=== PATIENT | male | born 1945 | race Caucasian/White ===

== ENCOUNTER 2019-08-13 12:11 | Inpatient (IN) | payer MEDICARE, OTHER, SELFPAY ==
[2019-08-13 12:59] VITALS: BP 133/96; PULSE 98; RESP 17; TEMP 36.8; O2SAT 93
--- NOTE | 2019-08-13 13:02 | PC.NURSE ---
Addendum entered by Anmol Bell R.N. 08/13/19 15:58: 1400 Photograph taken for assessment on wound camera. Left leg wound cleansed with normal saline, patted dry and non adherent telfa dressing applied, wrapped in kerlex gauze and secured with paper tape. Patient denies pain. Denies fever, chills, n/v, numbness or tingling. Denies calf pain or tenderness. Patient instructed to call for assistance to get up, and patient agrees not to get up alone. Original Note: Patient arrived from MD's office, sitting upright in bed, talkative, pleasant and in no acute distress. Left leg wound is AUTOMOTIVE UPHOLSTERER, sutures noted, see further wound assessment documentation. at bedside. Oriented to room and call light. Will continue to monitor and review orders. Plan for IV placement with antibiotics as ordered, NPO after midnight with anticipated procedure tomorrow.
[2019-08-13] MEDS: CEFAZOLIN 2 GM/100 ML FROZ.PIGGY IV ×2 (14:03→21:09)
[2019-08-13 14:22] VITALS: BMI 34.4
[2019-08-13 15:24] VITALS: BP 139/85; PULSE 104; RESP 18; TEMP 36.3; O2SAT 94
[2019-08-13] MEDS: METFORMIN HCL 500 MG TABLET 1000 MG PO (17:16)
[2019-08-13] MEDS: AMITRIPTYLINE 25 MG TABLET PO (17:16)
[2019-08-13] MEDS: SIMVASTATIN 40 MG TABLET PO (18:01)
[2019-08-13] MEDS: GABAPENTIN 600 MG TABLET PO (18:01)
--- NOTE | 2019-08-13 18:05 | P.HP_ITS ---
History of Present Illness History of Present Illness Date Patient Seen: 08/13/19 Time Patient Seen: 12:00 Chief complaint: infected hematoma in leg Narrative: The patient is a gentleman about whom I was called yesterday from the PA and his family doctor's clinic. He apparently has had swelling in his left leg and they have been treating him and attempted an I and D and wanted to refer him for definitive surgical treatment. He was able to come today and we saw him. Sometime around July 27 the patient fell at home and struck his leg on his bed leg. He had fairly immediate swelling of the area and of the leg. In the subsequent time some of that swelling has gone down but the skin has turned black. He has been on Keflex for at least a week and I asked them to switch him to Septra yesterday when I talked to them. The pain has improved with time. The swelling has also improved though he has been keeping an Jesus Alberto wrap on it. He did ice it initially. He is able to walk without any more difficulty than usual. Denies any fever chills. He is a diabetic. Patient reports a pain of 2 to 3/10 at this time. Patient History Medical History A-fib (Acute) Diabetes (Acute) HTN (hypertension) (Acute) Surgical History History of ankle surgery (Acute) Hx of elbow surgery (Acute) Hx of knee surgery (Acute) Family & Social History Family History Father Hypertension Mother Hypertension Sister Cancer Social History: household members spouse Safety & Behavioral: Feels Safe in Current Yes Environment Been Physically Hurt or No Threatened By a Person Suicidal Ideation Description None Suicide Plan Description No Plan Tobacco & Substance use: Smoking Status Never smoker alcohol intake current alcohol intake frequency 0-2 drinks per day Meds Home Medications and Allergies Home Medications Medication Instructions Recorded Confirmed Type allopurinol 300 mg tablet 300 mg PO DAILY 08/13/19 08/13/19 History amitriptyline 25 mg tablet 25 mg PO DAILY 08/13/19 08/13/19 History aspirin 81 mg tablet,delayed 81 mg PO DAILY 08/13/19 08/13/19 History release cholecalciferol (vitamin D3) 1,000 1,000 unit PO DAILY 08/13/19 08/13/19 History unit capsule dabigatran etexilate 150 mg capsule 150 mg PO BID 08/13/19 08/13/19 History gabapentin [Neurontin] 1,200 mg PO ONCE HS 08/13/19 08/13/19 History loratadine 10 mg tablet 10 mg PO DAILY 08/13/19 08/13/19 History metformin 1,000 mg tablet 1,000 mg PO BID 08/13/19 08/13/19 History metoprolol tartrate 25 mg tablet 25 mg PO BID tab 08/13/19 08/13/19 History multivitamin 1 cap PO DAILY 08/13/19 08/13/19 History simvastatin 40 mg tablet 40 mg PO DAILY 08/13/19 08/13/19 History sulfamethoxazole 800 1 tab PO BID 08/13/19 08/13/19 History mg-trimethoprim 160 mg tablet vitamin B complex 1 tab PO DAILY 08/13/19 08/13/19 History vitamin E (dl, acetate) 1,000 unit 1,000 unit PO DAILY 08/13/19 08/13/19 History capsule Allergies Allergy/AdvReac Type Severity Reaction Status Date / Time No Known Drug Allergies Allergy Unverified 08/13/19 11:45 Review of Systems Review of Systems Narrative: Patient denies fever chills or night sweats. No other skin lesions that are new or itching. Denies headache, double vision, pain is eyes, earaches, sore throat. Patient denies cough, cold, asthma. No chest pain or prior heart attacks. His legs do swell as specially the traumatize left leg. He does have hypertension and is taking medication for it. He also despite having never had a heart attack has AFib. There was an attempted a cardioversion which lasted temporarily. They decided not to ablate him. He had been on warfarin for his AFib but he was switched to dabigatran and is about to be changed to Eliquis because the pharmacy is switching drugs. Unfortunately he took his blood thinner this morning. Patient denies chronic joint or muscle pain. No blood in his urine or kidney stones. No seizures or blackouts. No anxiety or depression. No problems with this thyroid that he is aware of. His diabetes is pretty well controlled. He will bruise easily. Not spontaneously bleeding. He has no problems with his breasts. No nipple discharge. Exam Vital Signs (past 8 hours): - 08/13/19 12:59 08/13/19 15:24 Temperature 98.2 F 97.3 F L Pulse Rate 98 H 104 H Respiratory Rate 17 18 Blood Pressure 133/96 H 139/85 Pulse Oximetry 93 94 Oxygen Flow Rate 0 Narrative Exam Narrative: Cooperative obese gentleman in no apparent distress. His BMI is 30 for. Vitals signs are noted. His eyes are nonicteric. Pupils equal round reactive to light. Conjunctivae are pink. No swelling of the lids. His nasal septum is midline. Ears without lesion. Lips without splits. Oral mucosa is pink moist no open lesions. Neck is supple. There are no nodes in the neck or supraclavicular areas. Trachea is midline mobile. No tenderness or masses in the thyroid. His lungs are clear to auscultation without increased expiratory phase. Heart regular rate and rhythm without murmur gallop. His lungs percuss equally bilaterally. No bruit in the neck is appreciated. His abdomen is pr otuberant soft. There are no palpable masses or hernias. Liver and spleen are not enlarged. No tenderness. No guarding. Patient is alert and oriented x3. Speech rate and content are appropriate. Affect is appropriate. I do not feel good pulses at the wrist. The patient has a bounding left popliteal pulse. There is a 1+ dorsalis pedis pulse. I do not appreciate a tibialis posterior pulse on the left. Lateral left leg patient has a rather large hematoma with an eschar over it. It is fluctuant. The skin overlying it is mildly reddened. There is no redness extending beyond at this time. There has been some darkening of the skin however at the edges. Assessment & Plan Assessment and plan (1) Diabetes type 2 with atherosclerosis of arteries of extremities: Problem details: Continue metformin. Will hold for the morning. Cover him with sliding scale insulin at that time. Current visit: Yes Status: Acute (2) Essential hypertension: Problem details: Continue meds for his hypertension. Current visit: Yes Status: Acute (3) Traumatic hematoma of left lower leg: Problem details: May be infected. Will determine that when I drainage. Because the patient took his anticoagulation it will take at least 24 hours without effect to wear down will wait until tomorrow to do this operation. In the meantime will keep his legs elevated as much as possible to get the swelling out. Since he is completely anticoagulated will not need to give Lovenox today. Current visit: Yes Status: Acute (4) Obesity (BMI 30-39.9): Problem details: Will discuss his weight and diabetes management. Current visit: Yes Status: Acute (5) Atrial fibrillation: Problem details: Will continue his beta yuli and will control his rate. Will resume his anticoagulation when appropriate. Current visit: Yes Status: Acute (6) Chronic anticoagulation: Problem details: Will stop for the operation. Resume when appropriate afterward. Current visit: Yes Status: Acute (7) Gout: Problem details: Continue his allopurinol. Current visit: Yes Status: Acute
[2019-08-13 19:23] LABS: Add Manual Diff / Slide Review NO; Basophils Absolute Auto 0 /uL (0-100); Basophils Percent Auto 0.2 % (0-2); Eosinophils Absolute Auto 300 /uL (0-450); Eosinophils Percent Auto 4.2 % (2-4); Hematocrit 38.5 % (41-53); Hemoglobin 13.1 g/dL (13.5-17.5); Lymphocytes Absolute Auto 1800 /uL (1100-4500); Mean Corpuscular HGB Conc 33.9 % (30-36); Mean Corpuscular Hemoglobin 30.7 PG (26-34); Mean Corpuscular Volume 90.5 fL (80-100); Monocytes Absolute Auto 800 /uL (0-900); Monocytes Percent Auto 10.8 % (3-14); Neutrophils Absolute Auto 4800 /uL (1500-7000); Neutrophils Percent Auto 61.8 % (50-75); Platelet Count 320 X10^3/uL (150-400); Red Blood Cell Count 4.26 X10^6/uL (4.5-5.9); Red Cell Distribution Width 13.5 % (11.6-14.8); White Blood Cell Count 7.8 X10^3/uL (4.5-11.0)
[2019-08-13 19:31] VITALS: BP 153/98; PULSE 106; RESP 18; TEMP 37.1; O2SAT 95
[2019-08-13 19:36] LABS: Alanine Aminotransferase 14 IU/L (<50); Albumin Globulin Ratio 1.5 (1.0-2.8); Alkaline Phosphatase 95 U/L (38-126); Aspartate Aminotransferase 26 IU/L (17-59); BUN Creatinine Ratio 18.3 (6-22); Bilirubin Total 0.4 mg/dL (0.2-1.3); Blood Urea Nitrogen 22 mg/dL (9-20); Calcium 8.5 mg/dL (8.4-10.2); Carbon Dioxide 30 mmol/L (22-32); Chloride 101 mmol/L (98-107); Estimated Glomerular Filt Rate 59.3 mL/min (>60); Globulin 2.7 g/dL (1.7-4.1); Glucose 127 mg/dL (80-110); HEMOLYSIS < 15 (0-50); Potassium 3.9 mmol/L (3.4-5.1); Sodium 139 mmol/L (137-145); Total Protein 6.7 g/dL (6.3-8.2)
[2019-08-13] MEDS: GABAPENTIN 600 MG TABLET 1200 MG PO (21:09)
[2019-08-13] MEDS: LACTATED RINGERS 1,000 ML 100 ML IV (21:57)
[2019-08-13 23:11] VITALS: BP 154/95; PULSE 91; RESP 16; TEMP 36.9; O2SAT 95
[2019-08-14] VITALS (13 sets, daily range): BP systolic 107–147; BP diastolic 76–102; PULSE 84–112; RESP 10–18; TEMP 35.8–36.8; O2SAT 93–97
--- NOTE | 2019-08-14 00:27 | PC.NURSE ---
Addendum entered by Lavelle Castle R.N. 08/14/19 01:00: 0045: Metoprolol 25mg po given with sip of water. Pt up to bathroom with sba, steady on his feet. Original Note: Global Implementation Manager Note: 0015: Dr. Morocho notified by phone of pt's blood pressure and heart rate trends, and hx of A.fib.; he was also notified that pt.s home med Metoprolol is not on his current inpatient med list. New orders are to give a now dose of Metoprolol 25mg po, and start Metoprolol 25mg bid in the morning, (with a just sip of water due to NPO status).
[2019-08-14] MEDS: METOPROLOL IR 25 MG TABLET PO ×3 (00:47→20:37)
[2019-08-14] MEDS: CEFAZOLIN 2 GM/100 ML FROZ.PIGGY IV ×3 (04:15→20:37)
[2019-08-14] MEDS: ALLOPURINOL 300 MG TABLET PO (08:50)
[2019-08-14] MEDS: LACTATED RINGERS 1,000 ML 100 ML IV ×2 (09:19→14:44)
--- NOTE | 2019-08-14 09:32 | PC.NURSE ---
Day shift: Pt hypertensive with BP 150/98. Informed Dr Morocho and said to stop IV fluids at this time. Pt denies any headache or chest pain. Call light in reach. Wound dressing removed for Dr Morocho. No drainage from wound. Will leave open to air unlees MD wants a dressing placed.
--- NOTE | 2019-08-14 10:36 | PC.NURSE ---
Day shift: Pt sleeping at this time. Wound LLE open to air. No signs of drainage or discharge. Call light in reach. Bed alarm is on.
--- NOTE | 2019-08-14 11:07 | PC.NURSE ---
Day shift: Pt taking shower at this time.
--- NOTE | 2019-08-14 14:31 | PC.NURSE ---
Day shift: Pt off unit for I&D of left leg wound. ([id number]).
--- NOTE | 2019-08-14 14:41 | CM.DANOTE ---
Discharge Planning/Care Management DCP: assessment: initiated: case received, EMR reviewed. Discussed in Team Rounds. Pt is a 74 year old male who admitted yesterday to Dr. Peter: [facility] team. PCP: Dr. Luis Gomez Payer: Medicare and [facility] Admission status: INPT: confirmed by UR RN Shell Pt was admitted with infected hematoma in leg after hitting it at home and unsuccessful treatment in the clinic setting. Dr. Peter identified need for and I&D but also noted this could not be done until pt was anti-coagulated. Pt also carries dx of diabetes, managed by diet and oral medications. Surgery was planned for late this afternoon. Went to room earlier today to met with pt and continue the d/c planning assessment process. Informed by nursing staff that he had been taken off unit for surgical area about 1330. DCP team will check in tomorrow and follow as POC unfolds. Advanced directive, confirm from FAMILY Start: 08/13/19 14:38 Freq: Q24H Status: Active Protocol: Document 08/13/19 15:48 EM (Rec: 08/13/19 15:52 EM [id number]) Advance Directive, confirm on record Time 15:50 Person contacted Bill Copy received No CM Discharge Assessment Start: 08/14/19 14:39 Freq: Status: Active Protocol: Document 08/14/19 14:40 ITV (Rec: 08/14/19 14:41 ITV [id number]) Discharge Planning Assessment Advance Directives? Yes Advance Directives on File No History Provided By Medical Record Household Members spouse Whiteboard Updated in Patient Room with Yes name and ext. # of Assorter Review Status In Process
[2019-08-14] MEDS: SODIUM CHLORIDE IRRIG SOLUTION 1,000 ML, BACITRACIN 50,000 UNIT IRR (15:26)
--- NOTE | 2019-08-14 15:29 | SUR.OPER ---
Supine on padded OR bed, head on pillow, arms secured on padded arm boards at <90 degrees abduction, legs uncrossed, safety belt at waist , tape over blanket over lower right leg, bump under left thigh and leg draped free..
--- NOTE | 2019-08-14 15:36 | PM.HP.1 ---
History of Present Illness History of Present Illness Chief complaint: infected hematoma in leg Patient History Medical History A-fib (Acute) Diabetes (Acute) HTN (hypertension) (Acute) Surgical History History of ankle surgery (Acute) Hx of elbow surgery (Acute) Hx of knee surgery (Acute) Family & Social History Family History Father Hypertension Mother Hypertension Sister Cancer Social History: household members spouse Safety & Behavioral: Feels Safe in Current Yes Environment Been Physically Hurt or No Threatened By a Person Suicidal Ideation Description None Suicide Plan Description No Plan Tobacco & Substance use: Smoking Status Never smoker alcohol intake current alcohol intake frequency 0-2 drinks per day Meds Home Medications and Allergies Home Medications Medication Instructions Recorded Confirmed Type allopurinol 300 mg tablet 300 mg PO DAILY 08/13/19 08/13/19 History amitriptyline 25 mg tablet 25 mg PO DAILY 08/13/19 08/13/19 History aspirin 81 mg tablet,delayed 81 mg PO DAILY 08/13/19 08/13/19 History release cholecalciferol (vitamin D3) 1,000 1,000 unit PO DAILY 08/13/19 08/13/19 History unit capsule dabigatran etexilate 150 mg capsule 150 mg PO BID 08/13/19 08/13/19 History gabapentin [Neurontin] 1,200 mg PO ONCE HS 08/13/19 08/13/19 History loratadine 10 mg tablet 10 mg PO DAILY 08/13/19 08/13/19 History metformin 1,000 mg tablet 1,000 mg PO BID 08/13/19 08/13/19 History metoprolol tartrate 25 mg tablet 25 mg PO BID tab 08/13/19 08/13/19 History multivitamin 1 cap PO DAILY 08/13/19 08/13/19 History simvastatin 40 mg tablet 40 mg PO DAILY 08/13/19 08/13/19 History sulfamethoxazole 800 1 tab PO BID 08/13/19 08/13/19 History mg-trimethoprim 160 mg tablet vitamin B complex 1 tab PO DAILY 08/13/19 08/13/19 History vitamin E (dl, acetate) 1,000 unit 1,000 unit PO DAILY 08/13/19 08/13/19 History capsule Allergies Allergy/AdvReac Type Severity Reaction Status Date / Time No Known Drug Allergies Allergy Unverified 08/13/19 11:45 Exam Vital Signs (past 8 hours): - 08/14/19 09:00 08/14/19 12:00 08/14/19 14:44 Temperature 97.1 F L 96.6 F L 97.5 F L Pulse Rate 99 H 96 H 92 H Respiratory Rate 14 12 16 Blood Pressure 130/98 H 147/98 H 142/93 H Pulse Oximetry 95 97 96 Oxygen Delivery Method Room Air Oxygen Flow Rate 0 Narrative Exam Narrative: Interval update for history and physical done yesterday. There is no change in the history or physical. Cardiopulmonary exam is unchanged. Patient is a fairly rapid atrial fibrillation and is beta blocked. Objective Labs Result Diagrams: 08/13/19 19:17 08/13/19 19:17 Labs: Laboratory Results - last 24 hr 08/13/19 08/13/19 19:17 19:17 WBC 7.8 RBC 4.26 L Hgb 13.1 L Hct 38.5 L MCV 90.5 MCH 30.7 MCHC 33.9 RDW 13.5 Plt Count 320 Neut % (Auto) 61.8 Lymph % (Auto) 23.0 L [place] % (Auto) 10.8 Eos % (Auto) 4.2 H Baso % (Auto) 0.2 Neut # (Auto) 4800 Lymph # (Auto) 1800 [place] # (Auto) 800 Eos # (Auto) 300 Baso # (Auto) 0 Sodium 139 Potassium 3.9 Chloride 101 Carbon Dioxide 30 BUN 22 H Creatinine 1.20 Estimated GFR 59.3 L BUN/Creatinine Ratio 18.3 Glucose 127 H Calcium 8.5 Total Bilirubin 0.4 AST 26 ALT 14 Alkaline Phosphatase 95 Total Protein 6.7 Albumin 4.0 Globulin 2.7 Albumin/Globulin Ratio 1.5
--- NOTE | 2019-08-14 15:44 | PM.OP.1 ---
Operative Date/Time/Diagnoses Date of procedure: 08/14/19 Time of procedure: 15:45 Pre-op diagnosis: Infected hematoma left leg Post-op diagnosis: same Procedure & Clinicians Procedure: Incision and drainage of actuation of hematoma left leg Same procedure as scheduled: Yes Surgeon: Kaiser Morocho Click Yes if Unassisted: Yes Anesthesia Type: General Operative Notes Findings: Infected hematoma approximately 200 cc of clot Specimen(s): other (cultures) Estimated Blood Loss (mL): 20 Blood products transfused: none Procedure in detail: Patient given a general anesthetic using an LMA. He was properly identified during surgical pause. Left leg was prepped and draped in a sterile fashion. He had large lateral hematoma over the left calf. There was overlying eschar. The eschar was entirely excised approximately 1 cm wide and 3-4 cm in length. Once I opened this hematoma I evacuated approximately 200 cc of clot. There was no gross purulence but I did take cultures. Wound was then irrigated with a L of bacitracin saline. This is aspirated dry there was no fresh bleeding. I packed the wound with 1 in iodoform gauze. Sterile wrap dressing was applied procedure was well tolerated Complications: none Post-operative Condition: stable Disposition: PACU
[2019-08-14] MEDS: AMITRIPTYLINE 25 MG TABLET PO (17:20)
[2019-08-14] MEDS: SIMVASTATIN 40 MG TABLET PO (17:20)
[2019-08-14] MEDS: DABIGATRAN 75 MG CAPSULE 150 MG PO (20:37)
[2019-08-14] MEDS: GABAPENTIN 600 MG TABLET 1200 MG PO (21:42)
[2019-08-14] MEDS: ACETAMINOPHEN 325 MG TABLET 650 MG PO (21:42)
--- NOTE | 2019-08-15 00:29 | PC.NURSE ---
Addendum entered by Jazzmine Martins R.N. 08/15/19 04:49: Complains of 2/10 wound site achiness; medicated with Tylenol. Original Note: 0015 Patient is alert and oriented. Breath sounds diminished but CTA with RA sat of 94%. HR irregular with rate in 80's; hx of afib. Denies nausea. BT present and abdomen is soft; passing flatus. Denies dysuria, frequency or urgency; using urinal to void. Is able to turn himself. Dressing to left LE is CDI; leg is elevated on pillows. Denies pain except when leg touched; states he feels tingling over area where I&D done. CMS is intact. Due to recent fall, patient's fall risk score is high and bed alarm is activated and instructed to call for assistance prior to getting out of bed; verbalizes understanding. Wearing calf SCD on right LE.
[2019-08-15 00:51] VITALS: BP 133/83; PULSE 89; RESP 16; TEMP 36.1; O2SAT 94
[2019-08-15 03:00] VITALS: BP 143/81; PULSE 83; RESP 16; TEMP 36.1; O2SAT 94
[2019-08-15] MEDS: SODIUM CHLORIDE 0.9% FLUSH 10 ML IV ×2 (04:40→08:33)
[2019-08-15] MEDS: CEFAZOLIN 2 GM/100 ML FROZ.PIGGY IV ×2 (04:40→12:04)
[2019-08-15] MEDS: ACETAMINOPHEN 325 MG TABLET 650 MG PO (04:44)
[2019-08-15] MEDS: DABIGATRAN 75 MG CAPSULE 150 MG PO (08:33)
[2019-08-15] MEDS: ALLOPURINOL 300 MG TABLET PO (08:33)
[2019-08-15] MEDS: METOPROLOL IR 25 MG TABLET PO (08:33)
[2019-08-15 09:47] VITALS: BP 148/114; PULSE 94; RESP 16; TEMP 35.9; O2SAT 95
--- NOTE | 2019-08-15 09:50 | PM.DS.1 ---
History of Present Illness History of Present Illness Chief complaint: infected hematoma in leg Discharge Providers Provider Date of admission: 08/13/19 12:11 Discharge Date: 08/15/19 Primary care physician: Luis Gomez MD Consults: 08/13/19 12:25 Consult to Discharge Planning Routine Comment: 08/14/19 09:22 Consult to Wound Care Routine Comment: Consulting Provider: [facility] 08/15/19 09:44 Consult to Wound Care Routine Comment: Consulting Provider: [facility] Consult to Wound Care Urgent Comment: repack with iodoform Consulting Provider: [facility] 08/15/19 09:45 Consult to Home Health Urgent Comment: Reason For Exam: wound care to pack with iodoform daily Discharge provider: Kaiser Morocho MD Summary Hospital Course Discharge Diagnosis: Infected hematoma left leg Hospital Course: Patient was admitted the hospital started on intravenous antibiotic therapy and taken to the operating room where a large infected hematoma was evacuated from his left lateral calf. I removed devitalized tissue and packed the wound with iodoform. This morning I removed the iodoform there is no bleeding and no continued soft tissue infection is obvious. Patient is ready to be discharged with a wound repacked and arrangements made for home health to continue dressing changes and packing. He will continue all of his home medications unchanged. He will complete his course of oral antibiotics which were started prior to admission. Status at Discharge Cognitive/behavioral status at discharge: oriented Functional status at discharge: independent ambulation Overall status at discharge: patient is back to baseline Time Spent with Patient Time spent: Less than 30 minutes Exam Vital Signs (past 8 hours): - 08/15/19 03:00 08/15/19 09:47 Temperature 97.0 F L 96.7 F L Pulse Rate 83 94 H Respiratory Rate 16 16 Blood Pressure 143/81 H 148/114 H Pulse Oximetry 94 95 Oxygen Delivery Method Room Air Oxygen Flow Rate 0 Objective Labs Result Diagrams: 08/13/19 19:17 08/13/19 19:17 Discharge Plan Discharge Plan Patient Disposition: Home Discharge Med Rec/Prescriptions Prescriptions: Continued allopurinol 300 mg tablet 300 mg PO DAILY RF: 0 amitriptyline 25 mg tablet 25 mg PO DAILY RF: 0 loratadine 10 mg tablet 10 mg PO DAILY RF: 0 metformin 1,000 mg tablet 1,000 mg PO BID RF: 0 metoprolol tartrate 25 mg tablet 25 mg PO BID RF: 0 Pradaxa 150 mg capsule 150 mg PO BID RF: 0 simvastatin 40 mg tablet 40 mg PO DAILY RF: 0 sulfamethoxazole-trimethoprim [Bactrim DS] 800-160 mg tablet 1 tab PO BID RF: 0 aspirin [Adult Aspirin Regimen] 81 mg tablet,delayed release (DR/EC) 81 mg PO DAILY RF: 0 multivitamin Capsule 1 cap PO DAILY RF: 0 vitamin B complex [B Complex-Vitamin B12] Tablet 1 tab PO DAILY RF: 0 cholecalciferol (vitamin D3) 1,000 unit capsule 1,000 unit PO DAILY RF: 0 vitamin E (dl, acetate) 1,000 unit capsule 1,000 unit PO DAILY RF: 0 gabapentin [Neurontin] 600 mg tablet 1,200 mg PO ONCE HS RF: 0 Follow up/Referrals: Luis Gomez MD [Primary Care Provider] - Leopoldo Peter MD [Physician] - 1 Week Provider Discharge Instructions Diet: Carb-consistent/Diabetic Skin/Wound/Dressing Care Dressing: change daily repack daily...home health Discharge Data Primary Care Provider: Luis Gomez
--- NOTE | 2019-08-15 10:44 | PC.NURSE ---
Day shift: Dressing packed per Dr Morocho's instruction with Idoform and wrapped with gauze. Pt tolerated well.
--- NOTE | 2019-08-15 14:02 | CM.DPC ---
DCP Discharge Home with HH Per Surgeon, pt is medically stable to d/c home today with spouse and HH RN for ongoing wound care and placed orders and [facility] completed bedside Wound Consult with Dr. Mora with ongoing recommendations for wound care and likely need for pt to come to outpt clinic but likely cannot get pt in to their schedule for a while and HH RN would be helpful in the meantime. ARTUR met bedside with pt and spouse and explained role and they both confirm they are agreeable with d/c home today and SW discussed HH services and frequency and they feel HH would be helpful at d/c and no HH preference after looking at the HH Choice List. ARTUR made new referral to [facility] based on [facility] Calendar and faxed clinicals to review including d/c summary and MD orders but no F2F available yet. ARTUR called [facility] and Dr. Linares not currently in the office but they are agreeable to have F2F faxed to their office for him to sign when in the office. ARTUR faxed F2F for signature. Plan: Patient to d/c home via spouse POV later this evening and [facility] to open the pt to services for career orientation teacher. ANISH Campos
--- NOTE | 2019-08-15 14:46 | PC.NURSE ---
Day shift: Dressing changed per wound care MD. Pt tolerated well and Pt's spouse was shown how to change the dressing as well.
[2019-08-15 15:50] VITALS: BP 158/112; PULSE 100; RESP 18; TEMP 36.5; O2SAT 98
== END 2019-08-15 16:00 | disposition home health service (06) | DRG 605 ==
PROVIDERS: Surgery; Admitting Provider Specialist; PCP Internal Medicine; Visit Provider Specialist
PROC: 0HCLXZZ Extirpation of Matter from Left Lower Leg Skin, External Approach (ICD-10-PCS; principal; 2019-08-14 15:00)
DX: S80.12XA Contusion of left lower leg, initial encounter (principal); E11.51 Type 2 diabetes mellitus with diabetic peripheral angiopathy without gangrene; I70.203 Unspecified atherosclerosis of native arteries of extremities, bilateral legs; E66.9 Obesity, unspecified; Z68.34 Body mass index [BMI] 34.0-34.9, adult; I48.91 Unspecified atrial fibrillation; Z79.84 Long term (current) use of oral hypoglycemic drugs; M10.9 Gout, unspecified; W22.8XXA Striking against or struck by other objects, initial encounter; Y92.009 Unspecified place in unspecified non-institutional (private) residence as the place of occurrence of the external cause; W18.30XA Fall on same level, unspecified, initial encounter
CPT/HCPCS: 10140; 36415; 80053; 82962; 85025; 87070; 87075; 87205; 93005; 93010; 94762; J0690; J2405; J2704; J3010

== ENCOUNTER → 2019-08-18 14:13 | Outpatient (CLI) | payer MEDICARE, OTHER, SELFPAY ==
[2019-08-13 14:22] VITALS: BMI 34.4
== END ==
PROVIDERS: PCP Internal Medicine; Visit Provider Family Medicine
DX: S81.802A Unspecified open wound, left lower leg, initial encounter (principal); E11.622 Type 2 diabetes mellitus with other skin ulcer; L08.9 Local infection of the skin and subcutaneous tissue, unspecified
CPT/HCPCS: 11042; 99203; 99213

== ENCOUNTER → 2019-09-16 13:54 | Outpatient (CLI) | payer MEDICARE, OTHER, SELFPAY | PROVIDERS: PCP Internal Medicine; Visit Provider Family Medicine | DX: E11.628 Type 2 diabetes mellitus with other skin complications (principal); S81.802A Unspecified open wound, left lower leg, initial encounter | CPT/HCPCS: 11042 ==

== ENCOUNTER → 2019-09-23 10:07 | Outpatient (CLI) | payer MEDICARE, OTHER, SELFPAY | PROVIDERS: PCP Internal Medicine; Visit Provider Family Medicine | DX: S81.802A Unspecified open wound, left lower leg, initial encounter (principal); E11.628 Type 2 diabetes mellitus with other skin complications | CPT/HCPCS: 11042; 97605 ==

== ENCOUNTER → 2019-09-25 10:37 | Outpatient (CLI) | payer MEDICARE, OTHER, SELFPAY | PROVIDERS: PCP Internal Medicine; Visit Provider Family Medicine | DX: S81.802A Unspecified open wound, left lower leg, initial encounter (principal); R60.0 Localized edema | CPT/HCPCS: 97605 ==

== ENCOUNTER → 2019-09-30 10:37 | Outpatient (CLI) | payer MEDICARE, OTHER, SELFPAY | PROVIDERS: PCP Internal Medicine; Visit Provider Family Medicine | DX: S81.802A Unspecified open wound, left lower leg, initial encounter (principal) | CPT/HCPCS: 97605 ==

== ENCOUNTER → 2019-10-03 09:29 | Outpatient (CLI) | payer MEDICARE, OTHER, SELFPAY | PROVIDERS: PCP Internal Medicine; Visit Provider Family Medicine | DX: S81.802A Unspecified open wound, left lower leg, initial encounter (principal); R60.0 Localized edema | CPT/HCPCS: 97605 ==

== ENCOUNTER → 2019-10-07 14:49 | Outpatient (CLI) | payer MEDICARE, OTHER, SELFPAY | PROVIDERS: PCP Internal Medicine; Visit Provider Family Medicine | DX: S81.802A Unspecified open wound, left lower leg, initial encounter (principal) | CPT/HCPCS: 97605 ==

== ENCOUNTER → 2019-10-10 08:48 | Outpatient (CLI) | payer MEDICARE, OTHER, SELFPAY | PROVIDERS: PCP Internal Medicine; Visit Provider Family Medicine | DX: E11.628 Type 2 diabetes mellitus with other skin complications (principal); S81.802A Unspecified open wound, left lower leg, initial encounter | CPT/HCPCS: 11042 ==

== ENCOUNTER → 2019-10-13 10:39 | Outpatient (CLI) | payer MEDICARE, OTHER, SELFPAY | PROVIDERS: PCP Internal Medicine; Visit Provider Family Medicine | DX: S81.802A Unspecified open wound, left lower leg, initial encounter (principal); R60.0 Localized edema | CPT/HCPCS: 29581 ==

== ENCOUNTER → 2019-10-20 10:03 | Outpatient (CLI) | payer MEDICARE, OTHER, SELFPAY | PROVIDERS: PCP Internal Medicine; Visit Provider Family Medicine | DX: I87.2 Venous insufficiency (chronic) (peripheral) (principal); S81.802A Unspecified open wound, left lower leg, initial encounter; E11.628 Type 2 diabetes mellitus with other skin complications; R60.0 Localized edema | CPT/HCPCS: 11042 ==

== ENCOUNTER → 2019-10-27 14:28 | Outpatient (CLI) | payer MEDICARE, OTHER, SELFPAY | PROVIDERS: PCP Internal Medicine; Visit Provider Family Medicine | DX: E11.628 Type 2 diabetes mellitus with other skin complications (principal); S81.802A Unspecified open wound, left lower leg, initial encounter; R60.0 Localized edema | CPT/HCPCS: 11042 ==

== ENCOUNTER → 2019-11-03 09:34 | Outpatient (CLI) | payer MEDICARE, OTHER, SELFPAY | PROVIDERS: PCP Internal Medicine; Visit Provider Family Medicine | DX: E11.628 Type 2 diabetes mellitus with other skin complications (principal); S81.802A Unspecified open wound, left lower leg, initial encounter; R60.0 Localized edema | CPT/HCPCS: 97597 ==

== ENCOUNTER → 2019-11-10 12:52 | Outpatient (CLI) | payer MEDICARE, OTHER, SELFPAY | PROVIDERS: PCP Internal Medicine; Referring Provider Surgery; Visit Provider Family Medicine | DX: I87.2 Venous insufficiency (chronic) (peripheral) (principal); E11.628 Type 2 diabetes mellitus with other skin complications; Z79.84 Long term (current) use of oral hypoglycemic drugs; I48.91 Unspecified atrial fibrillation; S81.802A Unspecified open wound, left lower leg, initial encounter; R60.0 Localized edema | CPT/HCPCS: 97597 ==

== ENCOUNTER → 2019-11-17 10:22 | Outpatient (CLI) | payer MEDICARE, OTHER, SELFPAY | PROVIDERS: PCP Internal Medicine; Referring Provider Surgery; Visit Provider Family Medicine | DX: E11.628 Type 2 diabetes mellitus with other skin complications (principal); S81.802A Unspecified open wound, left lower leg, initial encounter | CPT/HCPCS: 97597 ==

== ENCOUNTER → 2019-11-24 09:40 | Outpatient (CLI) | payer MEDICARE, OTHER, SELFPAY | PROVIDERS: PCP Internal Medicine; Referring Provider Internal Medicine; Visit Provider Family Medicine | DX: I87.2 Venous insufficiency (chronic) (peripheral) (principal); E11.628 Type 2 diabetes mellitus with other skin complications; S81.802A Unspecified open wound, left lower leg, initial encounter; R60.0 Localized edema; Z79.84 Long term (current) use of oral hypoglycemic drugs | CPT/HCPCS: 97597; 99212 ==

== ENCOUNTER → 2019-12-01 08:46 | Outpatient (CLI) | payer MEDICARE, OTHER, SELFPAY | PROVIDERS: PCP Internal Medicine; Referring Provider Surgery; Visit Provider Family Medicine | DX: E11.628 Type 2 diabetes mellitus with other skin complications (principal); I87.2 Venous insufficiency (chronic) (peripheral); S81.802A Unspecified open wound, left lower leg, initial encounter; R60.0 Localized edema; Z79.84 Long term (current) use of oral hypoglycemic drugs | CPT/HCPCS: 11042 ==

== ENCOUNTER → 2019-12-08 08:53 | Outpatient (CLI) | payer MEDICARE, OTHER, SELFPAY | PROVIDERS: PCP Internal Medicine; Referring Provider Surgery; Visit Provider Family Medicine | DX: S81.802A Unspecified open wound, left lower leg, initial encounter (principal) | CPT/HCPCS: 29580 ==

== ENCOUNTER → 2019-12-15 11:14 | Outpatient (CLI) | payer MEDICARE, OTHER, SELFPAY | PROVIDERS: PCP Internal Medicine; Referring Provider Internal Medicine; Visit Provider Family Medicine | DX: I87.312 Chronic venous hypertension (idiopathic) with ulcer of left lower extremity (principal); E11.628 Type 2 diabetes mellitus with other skin complications; R60.0 Localized edema | CPT/HCPCS: 99212; 99213 ==

== ENCOUNTER 2021-05-18 10:53 | Day surgery (SDC) | payer MEDICARE, OTHER, SELFPAY ==
[2021-05-18] VITALS (8 sets, daily range): BP systolic 101–118; BP diastolic 72–82; PULSE 74–85; RESP 12–18; TEMP 36.6–36.8; O2SAT 92–97; BMI 30.1
[2021-05-18 12:03] LABS: COVID19 -Nasal RAPID Negative (Negative)
[2021-05-18] MEDS: SODIUM CHLORIDE 0.9% 1,000 ML 84 ML IV (12:23)
--- NOTE | 2021-05-18 12:44 | PM.PREOP ---
Pre-operative Note Interval Note History & Physical reviewed/Exam performed by Physician: Yes Changes to H&P: No ASA Class (for procedural sedation): II
--- NOTE | 2021-05-18 12:45 | P.OP.ENDO_ITS ---
Operative Date/Time/Diagnoses Date of procedure: 05/18/21 Pre-op diagnosis: See indications and findings Procedure & Clinicians Study performed: EGD Indications: Dysphagia Surgeon: Ally Busch Procedure Notes Procedure in detail: After informed consent was obtained patient was placed in left lateral decubitus position. The video upper scope was placed into the oropharynx and with the patient's help swelled into the esophagus. The esophagus stomach and duodenum were carefully examined. Retroflexed view of the GE junction was performed on withdrawal. The scope was removed. The patient tolerated procedure well. Blood loss none Complications none Sedation Total sedation time 14 minutes Versed 4 mg fentanyl 100 micro g IV titration Findings 1. Somewhat tortuous esophagus but otherwise normal 2. Focal slightly ulcerated stricture at the squamocolumnar junction at 40 cm. This did have some space between the rim a and the scope on retroflexed view but I did not feel comfortable dilating to the very large size. Therefore a 45 [place] Savary dilator was passed without significant resistance. 3. 6 cm hiatal hernia with at least 2 areas of Isaac lesions. 4. Otherwise negative stomach 5. Normal duodenal bulb and sweep Bill can restart his Eliquis tonight. He will have to be rescheduled for another dilation in 4-8 weeks.
[2021-05-18] MEDS: MIDAZOLAM 5 MG/5 ML VIAL IV (13:06)
[2021-05-18] MEDS: fentaNYL 250 MCG/5 ML INJ IV (13:07)
--- NOTE | 2021-05-18 14:37 | SUR.PHASEII ---
Patient dressed and ready for discharge. Message left for .
== END 2021-05-18 15:00 | disposition home or self-care (01) ==
PROVIDERS: PCP Internal Medicine; Referring Provider Internal Medicine Gastroenterology; Visit Provider Internal Medicine Gastroenterology
PROC: 0DJ08ZZ Inspection of Upper Intestinal Tract, Via Natural or Artificial Opening Endoscopic (ICD-10-PCS; CPT 43235; principal; 2021-05-18 13:00)
DX: K22.2 Esophageal obstruction (principal); R13.10 Dysphagia, unspecified; K44.9 Diaphragmatic hernia without obstruction or gangrene; I48.91 Unspecified atrial fibrillation; I10 Essential (primary) hypertension; E78.5 Hyperlipidemia, unspecified; E11.42 Type 2 diabetes mellitus with diabetic polyneuropathy; Z79.84 Long term (current) use of oral hypoglycemic drugs; K22.8 Other specified diseases of esophagus
CPT/HCPCS: 43248; 85610; 87635; J2250; J3010

== ENCOUNTER 2021-06-08 10:36 | Day surgery (SDC) | payer MEDICARE, OTHER, SELFPAY ==
--- NOTE | 2021-06-08 | PATH_ITS ---
[facility] Accession Number: [id number] . 01 Material submitted: . esophagus, E-G Junction - GE JUNCTION . 02 Diagnosis: Gastroesophageal Junction, Biopsy: Ulcerated squamcolumnar junctional mucosa. A PAS stain is negative for fungal organisms. Negative for intestinal metaplasia by alcian blue stain. Negative for dysplasia and malignancy. MRV 06/14/2021 1431 Local . 02 Electronically signed: . Delfina Evans MD, Pathologist NPI- [id number] . 01 Gross description: . GE JUNCTION: Received in formalin are multiple fragment(s) of bullock, soft tissue measuring 2.2 x 0.4 x 0.2 cm in aggregate submitted entirely in 1 cassette(s) /LANIE 06/09/2021 0458 Local . 02 Microscopic: . An AB/PAS stain was performed to evaluate for intestinal metaplasia and fungal organisms, respectively, and is negative for both. The control stain showed appropriate reactivity. . 02 Pathologist provided ICD-10: R13.14 . 02 CPT . 467948, [id number] Performed at: 01 [facility] [address], [place], [place] [id number] MD Charbel Stroud MD Phone: [phone] Performed at: 02 [facility] [address] [place], [place] [id number] MD Delfina Evans MD Phone: [phone]
[2021-06-08 11:07] LABS: COVID19 -Nasal RAPID Negative (Negative)
[2021-06-08] MEDS: SODIUM CHLORIDE 0.9% 1,000 ML 125 ML IV (11:38)
[2021-06-08 11:46] VITALS: BMI 30.1
[2021-06-08 11:55] VITALS: BP 122/84; PULSE 72; RESP 16; TEMP 36.3; O2SAT 98
--- NOTE | 2021-06-08 12:33 | PM.HP.1 ---
History of Present Illness History of Present Illness Date Patient Seen: 06/08/21 Chief complaint: EGD Narrative: Dysphagia with known esophageal stricture need for further dilation Patient History Medical History (Updated 06/08/21 @ 11:49 by Evelina Ramires RN) A-fib Diabetes Gastric reflux HTN (hypertension) Hyperlipidemia Peripheral neuropathy Schatzki's ring Sleep apnea Surgical History (Updated 06/08/21 @ 11:41 by Evelina Ramires RN) History of ankle surgery History of tonsillectomy Hx of elbow surgery Hx of knee surgery Family & Social History Family History Father Hypertension Mother Hypertension Sister Cancer Social History: household members spouse Tobacco & Substance use: Smoking Status Never smoker alcohol intake current alcohol intake frequency 0-2 drinks per day Substance Use Type does not use Meds Home Medications and Allergies Home Medications Medication Instructions Recorded Confirmed Type amitriptyline 25 mg tablet 25 mg PO DAILY 08/13/19 06/08/21 History aspirin 81 mg tablet,delayed 81 mg PO DAILY 08/13/19 06/08/21 History release (Adult Aspirin Regimen) cholecalciferol (vitamin D3) 25 1,000 unit PO DAILY 08/13/19 06/08/21 History mcg (1,000 unit) capsule gabapentin 600 mg tablet 1,200 mg PO ONCE HS 08/13/19 06/08/21 History (Neurontin) loratadine 10 mg tablet 10 mg PO DAILY 08/13/19 06/08/21 History metformin 1,000 mg tablet 1,000 mg PO BID 08/13/19 06/08/21 History multivitamin 1 cap PO DAILY 08/13/19 06/08/21 History simvastatin 40 mg tablet 40 mg PO DAILY 08/13/19 06/08/21 History vitamin B complex (B 1 tab PO DAILY 08/13/19 06/08/21 History Complex-Vitamin B12) vitamin E (dl, acetate) 450 mg 1,000 unit PO DAILY 08/13/19 06/08/21 History (1,000 unit) capsule apixaban 5 mg tablet (Eliquis) 5 mg PO BID 06/08/21 06/08/21 History chlorthalidone 25 mg tablet 25 mg PO QPM 06/08/21 06/08/21 History metoprolol succinate 100 mg 100 mg PO BID 06/08/21 06/08/21 History tablet,extended release 24 hr terbinafine HCl 250 mg tablet 250 mg PO DAILY 06/08/21 06/08/21 History Allergies Allergy/AdvReac Type Severity Reaction Status Date / Time No Known Drug Allergies Allergy Verified 06/08/21 11:41 Exam Vital Signs (past 8 hours): - 06/08/21 11:55 Temperature 97.3 F L Pulse Rate 72 Respiratory Rate 16 Blood Pressure 122/84 Pulse Oximetry 98 Oxygen Delivery Method Room Air Narrative Exam Narrative: Oropharynx free of lesions Chest clear to auscultation percussion Cardiac exam reveals no S3 or murmur Objective Labs Labs: Laboratory Results - last 24 hr 06/08/21 10:45 SARS-CoV-2 (PCR) Negative Assessment & Plan Assessment & Plan narrative: Dysphagia with known esophageal stricture need for further dilation. Risks, benefits, and alternatives have been explained. Time Spent With Patient Critical Care time: I spent a total of [] minutes of critical care time on this patient's care today; this time is exclusive of procedural time.
--- NOTE | 2021-06-08 12:34 | P.OP.ENDO_ITS ---
Operative Date/Time/Diagnoses Date of procedure: 06/08/21 Pre-op diagnosis: See indication and findings Procedure & Clinicians Study performed: EGD with dilation Indications: Dysphagia Surgeon: Ally Busch Procedure Notes Procedure in detail: After informed consent was obtained patient was placed in left lateral decubitus position. The video upper scope placed into the oropharynx and with the patient's help swelled into the esophagus. The esophagus stomach and duodenum were carefully examined. On withdrawal retroflexed view the GE junction was performed. The scope was removed. The patient tolerated procedure well. Blood loss none Complications none Sedation mac Findings 1. [id number] Schatzki's ring at the squamocolumnar junction. While this appeared to be straightforward on a straight view on retroflexed view the entire mechanism seems to have more volume and the mucosa was more abnormal. Biopsies were taken to rule out neoplasm. A 17 [place] Savary dilator was passed with no resistance. Second-look endoscopy revealed no large mucosal tear the trauma from the dilation. 2. 5 cm hiatal hernia 3. Multiple distal gastric erosions 4. Normal duodenal bulb and sweep Mr. Moraes should be in touch she in 4 weeks regarding his level of dysphagia. Further treatment will be based on his symptoms.
--- NOTE | 2021-06-08 12:57 | SUR.OPER ---
51 MM DILATOR USED
[2021-06-08 13:05] VITALS: BP 112/78; PULSE 79; RESP 15; TEMP 36.4; O2SAT 91
[2021-06-08 13:10] VITALS: BP 118/79; PULSE 69; RESP 14; O2SAT 96
[2021-06-08 13:15] VITALS: BP 109/70; PULSE 82; RESP 18; TEMP 36.6; O2SAT 99
[2021-06-08 13:26] VITALS: BP 120/78; PULSE 74; RESP 16; TEMP 36.7; O2SAT 96
[2021-06-08 13:40] VITALS: BP 130/88; PULSE 79; RESP 16; O2SAT 96
== END 2021-06-08 13:51 | disposition home or self-care (01) ==
PROVIDERS: PCP Internal Medicine; Referring Provider Internal Medicine Gastroenterology; Visit Provider Internal Medicine Gastroenterology
PROC: 0DJ08ZZ Inspection of Upper Intestinal Tract, Via Natural or Artificial Opening Endoscopic (ICD-10-PCS; CPT 43235; principal; 2021-06-08 12:30)
DX: K22.2 Esophageal obstruction (principal); K44.9 Diaphragmatic hernia without obstruction or gangrene; K25.9 Gastric ulcer, unspecified as acute or chronic, without hemorrhage or perforation
CPT/HCPCS: 43248; 43239; 87635